=== PATIENT | male | born 1965 | race Caucasian/White ===

== ENCOUNTER 2017-09-21 15:24 | Outpatient (CLI) | payer OTHER | END 2017-09-21 15:25 | disposition home or self-care (01) | LOC: BICCT 15:24 | PROVIDERS: ATTEND Family Medicine | DX: K40.91 Unilateral inguinal hernia, without obstruction or gangrene, recurrent (principal); R10.813 Right lower quadrant abdominal tenderness | CPT/HCPCS: 74176 ==

== ENCOUNTER 2019-11-16 16:34 | Emergency (ER) | payer BC, SELFPAY | END 2019-11-16 17:00 | disposition home or self-care (01) | LOC: ERS 16:34 | DX: J06.9 Acute upper respiratory infection, unspecified (principal); R11.2 Nausea with vomiting, unspecified; F17.210 Nicotine dependence, cigarettes, uncomplicated | CPT/HCPCS: 99283 ==

== ENCOUNTER 2022-02-04 11:46 | Emergency (ER) | payer SELFPAY | END 2022-02-04 13:20 | disposition home or self-care (01) | LOC: ERS 11:46 | DX: M25.511 Pain in right shoulder (principal); M25.551 Pain in right hip; F17.210 Nicotine dependence, cigarettes, uncomplicated ==

== ENCOUNTER 2022-09-22 13:49 | Outpatient (CLI) | payer OTHER | END 2022-09-22 13:50 | disposition home or self-care (01) | LOC: BICRAD 13:49 | PROVIDERS: ATTEND Student in an Organized Health Care Education/Training Program | DX: G89.29 Other chronic pain (principal); M81.8 Other osteoporosis without current pathological fracture; M16.11 Unilateral primary osteoarthritis, right hip ==

== ENCOUNTER 2023-10-07 12:23 | Emergency (ER) | payer SELFPAY, OTHER ==
[2023-10-07] MEDS ORDERED: Lidocaine 4% Patch TD SCH (13:15)
[2023-10-07] MEDS ORDERED: Naproxen 500 MG TAB ONE (13:17)
[2023-10-08] MEDS ORDERED: Transdermal Patch Removal TOP SCH (01:15)
== END 2023-10-07 15:00 | disposition home or self-care (01) ==
LOC: ERS 12:23
DX: S76.012A Strain of muscle, fascia and tendon of left hip, initial encounter (principal); S16.1XXA Strain of muscle, fascia and tendon at neck level, initial encounter; G89.29 Other chronic pain; F17.210 Nicotine dependence, cigarettes, uncomplicated; V43.52XA Car driver injured in collision with other type car in traffic accident, initial encounter
CPT/HCPCS: 70450; 72125

== ENCOUNTER 2023-10-14 11:46 | Emergency (ER) | payer SELFPAY, OTHER ==
[2023-10-14] MEDS ORDERED: Cyclobenzaprine 10 MG TAB ONE (12:09)
[2023-10-14] MEDS ORDERED: Ibuprofen 200 MG TAB ONE (12:09)
== END 2023-10-14 13:19 | disposition home or self-care (01) ==
LOC: ERS 11:46
DX: M54.50 Low back pain, unspecified (principal); M79.671 Pain in right foot; F17.210 Nicotine dependence, cigarettes, uncomplicated
CPT/HCPCS: 72100